=== PATIENT | male | born 1985 | race African-American/Black ===

== ENCOUNTER 2017-08-08 03:27 | Emergency (ER) | payer BC ==
[~2017-08-08] VITALS: Ht 177.8 cm; Wt 91.7 kg
[2017-08-08] MEDS ORDERED: FLEXERIL10 MG PO (03:56)
[2017-08-08] MEDS ORDERED: NAPROSYN500 MG PO (03:56)
[2017-08-08] MEDS ORDERED: MEDROL DOSEPAK4 MG PO (03:56)
[2017-08-08 04:09] VITALS: BP 163/105
== END 2017-08-08 04:10 | disposition home or self-care (01) ==
LOC: EME 03:27
DX: M54.32 Sciatica, left side (principal)
CPT/HCPCS: 99281; 99283; J1100